=== PATIENT | female | born 2005 | race Caucasian/White ===

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

== ENCOUNTER 2024-07-10 01:39 | Emergency (ER) | payer SELFPAY ==
[~2024-07-10] VITALS: Ht 160 cm; Wt 61.2 kg
[2024-07-10] MEDS ORDERED: AMOX500T2 PO (02:33)
[2024-07-10] MEDS ORDERED: IBUPROFEN 400 MG TABLET ONE (02:36)
[2024-07-10] MEDS ORDERED: AMOXICILLIN TRIHYDRATE 250 MG CAPSULE ONE ×2 (02:36→02:38)
[2024-07-10] MEDS: AMOXICILLIN TRIHYDRATE 500 MG CAPSULE PO ONE (02:45)
[2024-07-10] MEDS: IBUPROFEN 400 MG TABLET PO ONE (02:45)
[2024-07-10 02:48] VITALS: BP 135/84; TEMP 98.6; O2SAT 99
== END 2024-07-10 02:48 | disposition home or self-care (01) ==
LOC: ER 01:41
DX: K02.9 Dental caries, unspecified (principal); K04.7 Periapical abscess without sinus; J45.909 Unspecified asthma, uncomplicated; Z79.899 Other long term (current) drug therapy